=== PATIENT | female | born 1985 | race American Indian/Alaskan Native ===

== ENCOUNTER 2021-06-10 03:56 | Outpatient (CLI) | payer BC, MEDICAID ==
[2021-06-10 04:16] VITALS: BP 127/95
--- NOTE | 2021-06-10 04:55 | Ultrasound Report ---
ULTRASOUND BIOPHYSICAL PROFILE INDICATION / CLINICAL INFORMATION: Decreased movement. COMPARISON: None available. FINDINGS: BREATHING MOVEMENT = 2 GROSS BODY MOVEMENT = 2 TONE = 2 QUALITATIVE AMNIOTIC FLUID VOLUME = 2 TOTAL BIOPHYSICAL SCORE = 05/23 AMNIOTIC FLUID INDEX (cm) = 11.5 PRESENTATION: Cephalic. HEART RATE (beats per minute): 138 IMPRESSION: 1. biophysical profile = 05/23 Signer Name: Anmol Akers MD Signed: 06/10/2021 4:50 AM Workstation Name: [id number]
== END 2021-06-10 05:29 | disposition home or self-care (01) ==
LOC: TRG 03:56 → APU 03:57 → TRG 05:29
DX: O09.893 Supervision of other high risk pregnancies, third trimester (principal); Z3A.38 38 weeks gestation of pregnancy
CPT/HCPCS: 59025; 76815; 76819